=== PATIENT | female | born 1990 | race Caucasian/White ===

== ENCOUNTER → 2024-01-01 10:36 | Outpatient (REF) | payer OTHER, SELFPAY | LOC: MRI 3T 10:36 | PROVIDERS: ATTENDING PHYSICIAN Family Medicine | DX: D35.2 Benign neoplasm of pituitary gland (principal) | CPT/HCPCS: 70551 ==

== ENCOUNTER 2024-11-25 09:03 | Emergency (ER) | payer OTHER, SELFPAY ==
[2024-11-25 09:08] VITALS: BP 123/81
[2024-11-25 09:20] VITALS: BMI 25.7
--- NOTE | 2024-11-25 09:28 | ED.GENMED ---
History of Present Illness
General
Chief Complaint: Chest Pain
Source: patient
Exam Limitations: none
Time Seen by Provider: 11/25/24 09:23
History of Present Illness
History of Present Illness:
34-year-old female with history of hidradenitis suppurativa and strong family history of cardiac disease presents complaining of intermittent left-sided chest discomfort over the past week. The pain is slightly made worse if she takes a big breath.
Several days after the pain started she noticed a rash in the same area. No fevers or cough. She does note a recent flight to [place]. She denies leg swelling or calf pain. No cough or fever. She does not take exogenous hormones. No
other complaints at this time
Past History
Past History
ED Past Medical History: None; Negative NIDDM
ED Past Surgical History: Orthopedic
Social History
Tobacco: Smoker
Personal: Single
Living: with family
Employment: Employed
Phy Exam
Physical Exam
Physical Exam:
General: Well-appearing female no acute respiratory distress HEENT: Normocephalic atraumatic
Heart: Regular rate and rhythm lungs: Clear no wheeze
Skin: Vesicular rash over the left mid back as well as the superior aspect of the left breast.
Extremities: No cyanosis edema or calf tenderness
Scores
Heart Score for Chest Pain Patients
STEMI patient?: No
History: Slightly or Non-Suspicious
ECG: Normal
Age: </= 45 years
Risk Factors: 1 or 2 Risk Factors
Troponin: </= Normal Limit
Heart Score for Chest Pain Patients: 1
Heart Score Risk: 2.5% MACE over next 6 weeks
Course
Orders/Labs/Results
Orders:
Orders
11/25/24 09:04
EKG [Electrocardiogram (*1)] Urgent
Reason for Study: Palpitations
EKG- Treatment ONCE
11/25/24 09:47
Complete Blood Count/With Diff Urgent
Comprehensive Metabolic Panel Urgent
D-Dimer Urgent
Troponin I Urgent
Abnormal Lab Results
11/25/24
09:47
RBC 4.06 L 10^6/uL
(4.20-5.40)
MCH 32.3 H pg
(27.0-31.0)
Monocytes % 9.5 H %
(1.7-9.3)
Chloride 108 H mmol/L
(98-107)
11/25/24 09:47
11/25/24 09:47
Vital Signs
Initial and Last Documented VS:
Initial Vital Signs
Temp Pulse Resp BP Pulse Ox
97.5 F 71 16 123/81 98
11/25/24 09:08 11/25/24 09:08 11/25/24 09:08 11/25/24 09:08 11/25/24 09:08
Last Documented Vital Signs
Temp Pulse Resp BP Pulse Ox
97.5 F 71 16 123/81 98
11/25/24 09:08 11/25/24 09:08 11/25/24 09:08 11/25/24 09:08 11/25/24 09:40
MDM/Problems Addressed
Differential Diagnosis Includes:
Chest pain and scalp Simliya rash. Patient does have a strong family history cardiac disease at an early age she is concerned about cardiac issues. ACS is on the left differential. EKG is normal sinus rhythm without ischemic changes. Will check
troponin. 1 troponin should be enough given duration of time symptoms have been going on. Also given recent flight consider risk for PE although vital signs are stable. D-dimer is pending. If D-dimer and troponin initially negative symptoms may
be related to her rash which is likely herpes zoster.
*Pulse Oximetry
SaO2: 98
Oxygen Mode of Delivery: Room air
Patient hypoxic: not evaluated
*Critical Care Note
Total Time (30-74mins, 75-104mins- exclusive of procedures): Not Applicable
Update Note
Update Note:
Troponin and D-dimer both undetectable. Do not suspect acute cardiac issue or pulmonary embolism. Patient has a painful rash in the same area of her discomfort. I suspect herpes zoster. Valtrex prescribed. Stable for discharge. Due to her
extensive family history of cardiac disease, I did give her the name of cardiology for follow-up
ED Attending Note
-
Portions of this chart may have been created with voice recognition software.� Occasional wrong word or��sound alike� substitutions may have occurred due to the inherent limitations of voice recognition software.
Discharge Plan
Departure
Patient Disposition: Home (Routine Discharge)
Date of Disposition: 11/25/24
Time of Disposition: 10:37
Patient with high blood pressure during this ER visit?: No
Discharge Problem:
Herpes zoster
Instructions: Chest Pain That Is Not Caused by the Heart (DC), Shingles
Prescriptions:
New
valacyclovir [Valtrex] 1 gram tablet
1,000 mg PO TID Qty: 21 0RF
No Action
Rx Tablet
1 tab PO DAILY
ibuprofen 600 MG tablet
600 mg PO Q4HPRN PRN (Reason: moderate pain/cramps) 0RF
Referrals:
Ibeth Franklin DO [Family Provider, Family Practice]
Activity Restrictions/Additional Instructions:
Take antiviral medicine as directed. Please return here for worsening symptoms. Given your family history of cardiac disease it would be a good idea to continue seeing cardiology as a way.
Interventions
Interventions:
*Risk Screen - Suicide Last Done: 11/25/24 09:08
*General Assessment Last Done: 11/25/24 09:08
*Neglect/Abuse Screening Last Done: 11/25/24 09:08
*ED- Fall Risk Assessment Last Done: 11/25/24 09:20
*ED COVID-19 Vaccine History Last Done: 11/25/24 09:20
ED- Cardiac Assessment Last Done: 11/25/24 09:20
Discharge Date and Time
Print Language: [place]
[2024-11-25 09:55] LABS: % Basophils 0.5 % (0-2); % Eosinophils 3.6 % (0-6); % Immature Granulocytes 0.2 % (0-0.5); % Lymphocytes 35.1 % (20.5-51.1); % Monocytes 9.5 % (1.7-9.3); % Neutrophils 51.1 % (42.2-75.2); Absolute Eosinophils 0.2 10^3/uL (0-0.7); Absolute Lymphocytes 2.1 10^3/uL (1.2-3.4); Absolute Monocytes 0.6 10^3/uL (0.1-0.6); Absolute Neutrophils 3.1 10^3/uL (1.4-6.5); Hematocrit 38.5 % (37.0-47.0); Hemoglobin 13.1 g/dL (12.0-16.0); Mean Corpuscular Hgb 32.3 pg (27.0-31.0); Mean Corpuscular Volume 94.8 fL (81.0-99.0); Mean Platelet Volume 8.4 fL (7.4-10.4); Nucleated Red Blood Cells % 0 %; Platelet Count 271 10^3/uL (130-400); Red Blood Cell Count 4.06 10^6/uL (4.20-5.40); Red Cell Dist. Width 11.8 % (11.5-14.5); White Blood Cell Count 6.1 10^3/uL (4.8-10.8)
[2024-11-25 10:17] LABS: D-Dimer < 0.27 ug/mlFEU (0.00-0.50)
[2024-11-25 10:23] LABS: ALT (SGPT) 15 U/L (0-35); AST (SGOT) 17 U/L (14-36); Albumin 4.1 g/dl (3.5-5.0); Alkaline Phosphatase 53 U/L (38-126); Blood Urea Nitrogen 14 mg/dl (7-17); Calcium 9.2 mg/dl (8.4-10.2); Carbon Dioxide 27 mmol/L (22-30); Chloride 108 mmol/L (98-107); Estimated Creatinine Clearance 100 ml/min; Glucose 99 mg/dl (70-99); Potassium 3.9 mmol/L (3.5-5.1); Sodium 140 mmol/L (135-145); Total Bilirubin 0.4 mg/dl (0.2-1.3); Total Protein 6.3 g/dl (6.3-8.2); eGFR > 60.00
[2024-11-25 10:29] LABS: Troponin I < 0.012 ng/ml
== END 2024-11-25 10:48 | disposition home or self-care (01) ==
LOC: EMR 09:03
PROVIDERS: Physician Assistant; EMERGENCY PHYSICIAN Emergency Medicine; FAMILY PHYSICIAN Family Medicine
DX: B02.9 Zoster without complications (principal); F17.200 Nicotine dependence, unspecified, uncomplicated; Z82.49 Family history of ischemic heart disease and other diseases of the circulatory system
CPT/HCPCS: 99283; 80053; 84484; 85025; 85379; 93005

== ENCOUNTER 2025-03-07 20:53 | Emergency (ER) | payer OTHER, SELFPAY ==
[2025-03-07 20:55] VITALS: BP 124/82
[2025-03-07 21:22] LABS: Urine Character Bloody (Clear)
[2025-03-07 21:26] LABS: HCG, Serum Qualitative Screen Negative; Hematocrit 38.8 % (37.0-47.0); Hemoglobin 12.8 g/dL (12.0-16.0); Mean Corp Hgb Conc. 33.0 g/dL (33.0-37.0); Mean Corpuscular Volume 95.1 fL (81.0-99.0); Nucleated Red Blood Cells % 0 %; Platelet Count 341 10^3/uL (130-400); Red Cell Dist. Width 11.6 % (11.5-14.5)
[2025-03-07 21:36] LABS: ALT (SGPT) 26 U/L (0-35); AST (SGOT) 23 U/L (14-36); Albumin 4.8 g/dl (3.5-5.0); Alkaline Phosphatase 74 U/L (38-126); Blood Urea Nitrogen 13 mg/dl (7-17); Calcium 9.2 mg/dl (8.4-10.2); Carbon Dioxide 27 mmol/L (22-30); Chloride 103 mmol/L (98-107); Glucose 100 mg/dl (70-99); Potassium 3.9 mmol/L (3.5-5.1); Sodium 138 mmol/L (135-145); Total Protein 7.5 g/dl (6.3-8.2); eGFR > 60.00
[2025-03-07 21:38] LABS: Urine Red Blood Cell >100 /HPF (0-2); Urine White Cell >100 /HPF (0-5)
--- NOTE | 2025-03-07 23:31 | ED.GENMED ---
History of Present Illness
General
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
Source: patient
Exam Limitations: none
Time Seen by Provider: 03/07/25 23:03
Nursing documentation reviewed up to this point in time: agreed with
History of Present Illness
History of Present Illness:
34-year-old female with a past medical history of pituitary tumor, hidradenitis suppurativa, who presents to the ER today with concerns of sudden onset of urinary urgency starting around 5 days ago. She reports that is characterized by discomfort
and heaviness in her pelvic region as well. She reports that symptoms initially went away but then returned while at work and she reports that the symptoms are so persistent that she could not work with the symptoms. She also notes noting blood in
her urine but she is not due for her period for 14 days. She also recalls previous urinary issues over the past few years and reports that she does get frequent yeast infections but denies having a UTI this symptomatic in the past. She also
reports that she has been experiencing some back pain intermittently which is exacerbated by sitting and relieved by lying down--however, that has been going on for multiple months. She denies any trauma. She also felt like she had some chills but
denies any fever.
Past History
Past History
ED Past Medical History: None; Negative NIDDM
ED Past Surgical History: Orthopedic
Social History
Tobacco: Smoker
Personal: Single
Living: with family
Employment: Employed
Review of Systems
Review of Systems
All Other Systems: ROS reviewed and negative except as documented in HPI and ROS
Phy Exam
Physical Exam
Physical Exam:
General: Patient is well appearing and in no acute distress; non-toxic
Skin: Warm and dry, no rashes or lesions
Head: Normocephalic, atraumatic
Eyes: Sclera non-icteric. EOMs intact.
Cardiac: Regular rate and rhythm, no murmurs
Peripheral Vascular: No lower extremity swelling or edema
Pulm: Normal respiratory effort, no wheezes, rales, or rhonchi
Abdomen: No abdominal tenderness to palpation
Musculoskeletal: No midline spinal tenderness to palpation, full ROM of the lumbar and thoracic spine
Neuro: CN II-XII intact, no focal neurologic deficits.
Psychiatric: Appropriate mood and affect.
Course
Orders/Labs/Results
Orders:
Orders
03/07/25 20:59
Test Result ONCE
03/07/25 21:06
Complete Blood Count/With Diff Urgent
Comprehensive Metabolic Panel Urgent
HCG, Serum Qualitative Screen Urgent
Urinalysis Reflex To Culture Urgent
Date Specimen was Collected: 03/07/25
Time Specimen was Collected: 20:59
Urine Microscopic Reflex Cult Urgent
Urine Culture Urgent
FRANCISCO Source: U
Specimen Description:
Date Specimen was Collected: 03/07/25
Time Specimen was Collected: 20:59
03/07/25 23:29
0.9% Sodium Chloride 500 ml [Nss] 500 ml IV BOLUS
Ketorolac [Toradol] 15 mg IV NOW STA
Phenazopyridine HCl [Pyridium] 100 mg PO NOW STA
03/07/25 23:30
CT Abd/pel Without Iv Or Oral Urgent
Comment:
Reason For Exam: flank pain
Abnormal Lab Results
03/07/25
21:06
RBC 4.08 L 10^6/uL
(4.20-5.40)
MCH 31.4 H pg
(27.0-31.0)
Absolute Lymphs (auto) 3.9 H 10^3/uL
(1.2-3.4)
Glucose 100 H mg/dl
(70-99)
Urine Ketones 3+ A
(Negative)
Ur Occult Blood Reflex 4+ A
(Negative)
Urine Nitrite (Reflex) Positive A
(Negative)
Leukocyte Esterase Rfl 3+ A
(Negative)
Urine RBC >100 A /HPF
(0-2)
Urine WBC (Reflex) >100 A /HPF
(0-5)
Urine Albumin (Reflex) 4+ A
(Neg - Trace)
03/07/25 21:06
03/07/25 21:06
Vital Signs
Initial and Last Documented VS:
Initial Vital Signs
Temp Pulse Resp BP Pulse Ox
98 F 76 18 124/82 100
03/07/25 20:55 03/07/25 20:55 03/07/25 20:55 03/07/25 20:55 03/07/25 20:55
Last Documented Vital Signs
Temp Pulse Resp BP Pulse Ox
98 F 57 20 103/69 99
03/07/25 20:55 03/08/25 02:00 03/08/25 02:00 03/08/25 02:00 03/08/25 02:00
MDM/Problems Addressed
Differential Diagnosis Includes:
ddx include hemorrhagic cystitis, pyelonephritis, nephrolithiasis
MDM/Problems Addressed:
34-year-old female with a past medical history of pituitary tumor, hidradenitis suppurativa, who presents to the ER today with concerns of sudden onset of urinary urgency starting around 5 days ago. She reports that is characterized by discomfort
and heaviness in her pelvic region as well. She states that these symptoms are typical of her typical UTIs but this feels more severe. She also states that she has had some vague back pain for a while but no exam, she has no clear CVA tenderness.
She is afebrile. She has no wbc count. In light of gross hematuria with UTI symptoms, patient was sent for CT scan which was negative for obstructive uropathy. Her kidney function was normal. She did achieve symptomatic improvement with azo and
toradol. Will initiate keflex. Discussed strict return precautions. Patient reports that she has had recurrent UTIs in the past and has had problems and concerns with protein in her urine. Because of this, I did discuss that it may be a good idea
to be evaluated by urologist. Patient provided with referral.
*Pulse Oximetry
SaO2: 100
Oxygen Mode of Delivery: Room air
Patient hypoxic: no
*Critical Care Note
Total Time (30-74mins, 75-104mins- exclusive of procedures): Not Applicable
Data Reviewed
Review of Other/Old Records Reveals: Records (Reviewed ER physician documentation from 11/25/2024 patient seen for herpes zoster)
Source: patient and records
ED Attending Note
-
Portions of this chart may have been created with voice recognition software.� Occasional wrong word or��sound alike� substitutions may have occurred due to the inherent limitations of voice recognition software.
Discharge Plan
Departure
Patient Disposition: Home (Routine Discharge)
Date of Disposition: 03/08/25
Time of Disposition: 01:57
Patient with high blood pressure during this ER visit?: Yes
Condition: Good
Discharge Problem:
Hemorrhagic cystitis
Instructions: Urinary tract infections in adults, Dysuria, Adult (DC), BLOOD PRESSURE
Prescriptions:
New
cephalexin 500 mg capsule
500 mg PO BID 7 Days Qty: 14 0RF
phenazopyridine [Pyridium] 200 mg tablet
200 mg PO TID Qty: 6 0RF
No Action
Rx Tablet
1 tab PO DAILY
ibuprofen 600 MG tablet
600 mg PO Q4HPRN PRN (Reason: moderate pain/cramps) 0RF
valacyclovir [Valtrex] 1 gram tablet
1,000 mg PO TID Qty: 21 0RF
Referrals:
Jayla Bentley DO [Active, Urology] - Call in 1-3 days for appt
Ibeth Franklin DO [Family Provider, Family Practice]
Activity Restrictions/Additional Instructions:
Keflex has been sent to her pharmacy. Please take 1 tablet twice daily for 7 days. Please follow-up with your primary care provider. You can also take Azo as needed for symptomatic control of urinary symptoms. You can take 1 tablet as needed up
to 3 times daily for 2 days. I recommend following up with urology.
PLEASE RETURN TO ER SHOULD YOU DEVELOP FLANK PAIN, FEVERS OR CHILLS, INTRACTABLE NAUSEA OR VOMITING, OR ANY OTHER SIGNS OR SYMPTOMS CONCERNING TO YOU.
Interventions
Interventions:
*Risk Screen - Suicide Last Done: 03/07/25 20:57
*General Assessment Last Done: 03/07/25 20:57
*Neglect/Abuse Screening Last Done: 03/07/25 20:57
*ED- Fall Risk Assessment Last Done: 03/08/25 02:25
*ED COVID-19 Vaccine History Last Done: 03/07/25 20:57
*ED Influenza Vaccine History Last Done: 03/07/25 20:57
*Nursing Disposition Last Done: 03/08/25 02:25
ED-Female Genitourinary Assessment Last Done: 03/08/25 00:30
Discharge Date and Time
Discharge Date/Time: 03/08/25 02:26
Print Language: [place]
[2025-03-08] MEDS: TORADOL 15 MG IV (00:29)
[2025-03-08] MEDS: NSS 500 IV (00:29)
[2025-03-08 02:00] VITALS: BP 103/69
== END 2025-03-08 02:26 | disposition home or self-care (01) ==
LOC: EMR 20:53
PROVIDERS: Student in an Organized Health Care Education/Training Program; EMERGENCY PHYSICIAN Emergency Medicine; FAMILY PHYSICIAN Family Medicine
DX: N30.90 Cystitis, unspecified without hematuria (principal); L73.2 Hidradenitis suppurativa; F17.200 Nicotine dependence, unspecified, uncomplicated; Z87.440 Personal history of urinary (tract) infections
CPT/HCPCS: 99284; 96374; 96361; 74176; 80053; 81003; 81015; 84703; 85025; 87086